=== PATIENT | male | born 1965 ===

== ENCOUNTER 2017-12-08 12:57 | Outpatient (CLI) | payer OTHER | END 2017-12-08 13:15 | disposition home or self-care (01) | LOC: LAB 12:57 | DX: E66.01 Morbid (severe) obesity due to excess calories (principal); R10.13 Epigastric pain; R73.9 Hyperglycemia, unspecified; E56.9 Vitamin deficiency, unspecified ==

== ENCOUNTER 2017-12-08 17:07 | Outpatient (CLI) | payer OTHER | END 2017-12-08 17:20 | disposition home or self-care (01) | LOC: EKG 17:07 | DX: E66.01 Morbid (severe) obesity due to excess calories (principal); R00.0 Tachycardia, unspecified ==